=== PATIENT | male | born 1930 | race Caucasian/White ===

== ENCOUNTER 2017-01-11 20:53 | Inpatient (IN) | payer OTHER ==
[~2017-01-11] VITALS: Ht 177.8 cm; Wt 111.9 kg
[~2017-01-11 20:53] MED LIST: ASPIRIN81 M1 PO; CARDURA4 MG PO; DIOVAN320 MG PO; K-DUR20 MEQ PO; LASIX40 MG PO; Lopressor PO
[2017-01-11] MEDS ORDERED: AMLODIPINE BESYL5 MG PO (21:13)
[2017-01-11] MEDS ORDERED: HYDRALAZINE HCL50 MG PO (21:13)
[2017-01-11 21:52] LABS: EOSINOPHIL (%) 0.5 % (0-5); EOSINOPHIL COUNT 0.1 K/uL (0-0.3); HEMATOCRIT 47.4 % (38.0-50.0); IMMATURE GRANULOCYTE (%) 0.5 % (0.0-0.7); IMMATURE GRANULOCYTE COUNT 0.1 K/uL; INSTRUMENT ABS NEUTROPHIL CT 8.6 K/uL; LYMPHOCYTE COUNT 0.8 K/uL (1.0-2.8); MCH 30.3 PG (29.0-34.0); MCHC 33.1 G/DL (30.0-36.0); MCV 91.5 FL (86-99); MEAN PLAT.VOLUME 10.5 uM^3 (9.0-12.4); MONOCYTE (%) 5.2 % (3-12); MONOCYTE COUNT 0.5 K/uL (0-0.8); NEUTROPHIL (%) 85.2 % (45-76); NEUTROPHIL COUNT 8.6 K/uL (1.8-6.4); PLATELET COUNT 180 K/uL (156-360); RBC DIS.WIDTH-CV 14.1 % (11.8-14.6); RBC DIS.WIDTH-SD 47.7 % (39-53); RED BLOOD COUNT 5.18 M/uL (4.00-5.50)
[2017-01-11 22:04] LABS: PROTHROMBIN TIME 11.2 SEC (10.2-12.9)
[2017-01-11 22:05] LABS: AMYLASE 37 IU/L (1-118); CHLORIDE 107 mEq/L (99-109); POTASSIUM 3.9 mEq/L (3.7-5.4); SODIUM 140 mEq/L (136-147)
[2017-01-11 22:06] LABS: GLUCOSE 225 mg/dL (70-99); PTT 30.7 SEC (25-37)
[2017-01-11 22:08] LABS: ANION GAP 12 MEQ/L (2-14)
[2017-01-11 22:10] LABS: GFR ESTIMATE (CALCULATED) > 59 mL/min/; SERUM ETHYL ALCOHOL < 10 mg/dL
[2017-01-11 22:11] LABS: UREA NITROGEN (BUN) 25 mg/dL (9-23)
[2017-01-11 22:13] LABS: LIPASE 24 U/L (1.0-51.0)
[2017-01-11 22:19] LABS: TROP-I INTERPRETATION NEGATIVE; TROPONIN-I 0.09 ng/mL (0.0-0.30)
[2017-01-11 23:32] VITALS: BP 175/107
[2017-01-11 23:40] VITALS: BP 175/107
[2017-01-11 23:50] VITALS: BP 176/99
[2017-01-12] VITALS (21 sets, daily range): BP systolic 137–192; BP diastolic 68–140
[2017-01-12 01:07] LABS: METH RESISTANT S AUREUS PCR NEGATIVE (NEGATIVE)
[2017-01-12 01:44] LABS: PROBE CHECK PASS; SPECIMEN PROCESSING CONTROL PASS
[2017-01-12 05:44] LABS: EOSINOPHIL (%) 0.6 % (0-5); EOSINOPHIL COUNT 0.1 K/uL (0-0.3); HEMATOCRIT 47.2 % (38.0-50.0); IMMATURE GRANULOCYTE (%) 0.3 % (0.0-0.7); INSTRUMENT ABS NEUTROPHIL CT 6.7 K/uL; LYMPHOCYTE COUNT 1.2 K/uL (1.0-2.8); MCH 30.1 PG (29.0-34.0); MCHC 33.1 G/DL (30.0-36.0); MCV 91.1 FL (86-99); MONOCYTE (%) 8.3 % (3-12); MONOCYTE COUNT 0.7 K/uL (0-0.8); NEUTROPHIL (%) 76.9 % (45-76); NEUTROPHIL COUNT 6.7 K/uL (1.8-6.4); RBC DIS.WIDTH-CV 14.1 % (11.8-14.6); RBC DIS.WIDTH-SD 47.8 % (39-53); RED BLOOD COUNT 5.18 M/uL (4.00-5.50); WHITE BLOOD COUNT 8.7 K/uL (4.1-10.2)
[2017-01-12 06:14] LABS: MEAN PLAT.VOLUME 10.8 uM^3 (9.0-12.4); PLAT.SUFFICIENCY ADEQUATE; PLATELET COUNT 194 K/uL (156-360)
[2017-01-12 06:28] LABS: TROP-I INTERPRETATION POSITIVE; TROPONIN-I 7.25 ng/mL (0.0-0.30)
[2017-01-12 06:37] LABS: Estimated Average Glucose 120 mg/dL (70-123); HEMOGLOBIN A1c (GLYCOHEMOGLOB) 5.8 % HGB (Below 5.7)
[2017-01-12 06:56] LABS: ANION GAP 13 MEQ/L (2-14); CHLORIDE 103 MEQ/L (99-109); CREATINE KINASE 321 IU/L (1-294); GFR ESTIMATE (CALCULATED) > 59 mL/min/; HDL CHOLESTEROL 38 MG/DL (Desirable>=40); LDL CHOLESTEROL 85 mg/dL (Desirable<100); NON-HDL CHOLESTEROL 127 mg/dL (Desirable<160); POTASSIUM 4.1 MEQ/L (3.7-5.4); SAMPLE HEMOLYSIS CHECK 0; SAMPLE ICTERIC CHECK 0; SAMPLE LIPEMIA CHECK 0; SODIUM 137 MEQ/L (136-147); TOTAL CHOLESTEROL 165 mg/dL (Desirable<200); TOTAL CK 321 IU/L (1-294); TRIGLYCERIDES 209 MG/DL (Normal: <150); UREA NITROGEN (BUN) 23 mg/dL (9-23)
[2017-01-12 07:09] LABS: GLUCOSE 91 mg/dL (70-99)
[2017-01-12 11:08] LABS: CK-MB 19.9 ng/mL (0.0-4.9)
[2017-01-12 13:22] LABS: TROP-I INTERPRETATION POSITIVE; TROPONIN-I 6.47 ng/mL (0.0-0.30)
[2017-01-12 13:42] LABS: CREATINE KINASE 310 IU/L (1-294); TOTAL CK 310 IU/L (1-294)
[2017-01-12 14:06] LABS: CK-MB 18.3 ng/mL (0.0-4.9)
[2017-01-12 18:41] LABS: TROP-I INTERPRETATION POSITIVE; TROPONIN-I 5.62 ng/mL (0.0-0.30)
[2017-01-12 18:43] LABS: CREATINE KINASE 269 IU/L (1-294); TOTAL CK 269 IU/L (1-294)
[2017-01-12 18:47] LABS: CK-MB 15.9 ng/mL (0.0-4.9)
[2017-01-13 04:55] VITALS: BP 148/75
[2017-01-13 05:44] LABS: HEMATOCRIT 44.2 % (38.0-50.0); MCH 31.3 PG (29.0-34.0); MCHC 34.4 G/DL (30.0-36.0); MCV 91.1 FL (86-99); MEAN PLAT.VOLUME 10.7 uM^3 (9.0-12.4); PLATELET COUNT 191 K/uL (156-360); RBC DIS.WIDTH-CV 14.5 % (11.8-14.6); RED BLOOD COUNT 4.85 M/uL (4.00-5.50); WHITE BLOOD COUNT 7.5 K/uL (4.1-10.2)
[2017-01-13 06:10] LABS: ANION GAP 9 MEQ/L (2-14); CHLORIDE 106 MEQ/L (99-109); GFR ESTIMATE (CALCULATED) > 59 mL/min/; GLUCOSE 110 mg/dL (70-99); POTASSIUM 4.3 MEQ/L (3.7-5.4); SAMPLE HEMOLYSIS CHECK 0; SAMPLE ICTERIC CHECK 0; SAMPLE LIPEMIA CHECK 0; SODIUM 139 MEQ/L (136-147); UREA NITROGEN (BUN) 29 mg/dL (9-23)
[2017-01-13 07:40] VITALS: BP 178/80
[2017-01-13 09:42] VITALS: BP 153/67
[2017-01-13] MEDS ORDERED: NITROSTAT0.4 MG SL (09:56)
[2017-01-13] MEDS ORDERED: BRILINTA90 MG PO (09:56)
[2017-01-13] MEDS ORDERED: ATORVASTATIN CA80 MG PO (09:56)
[2017-01-13] MEDS ORDERED: TYLENOL REGULA325 MG PO (09:58)
== END 2017-01-13 12:07 | disposition home or self-care (01) | DRG 247 ==
LOC: EME → EDBD 20:53 → ENRESERV 21:38 → EME 22:10 → CATH 22:10 → 4WEST 23:29 → 4EAST 23:29 → 4WEST 01-12 13:49 → ENRESERV 01-12 13:54 → 4WEST 01-12 13:56 → ENRESERV 01-12 15:09 → 4EAST 01-12 15:26
PROVIDERS: Emergency Medicine; Internal Medicine; Internal Medicine Cardiovascular Disease
DX: I21.19 ST elevation (STEMI) myocardial infarction involving other coronary artery of inferior wall (principal); I25.10 Atherosclerotic heart disease of native coronary artery without angina pectoris; I50.32 Chronic diastolic (congestive) heart failure; I11.0 Hypertensive heart disease with heart failure; I45.9 Conduction disorder, unspecified; E78.5 Hyperlipidemia, unspecified; I35.0 Nonrheumatic aortic (valve) stenosis; K21.9 Gastro-esophageal reflux disease without esophagitis; Z87.891 Personal history of nicotine dependence; Z79.82 Long term (current) use of aspirin
CPT/HCPCS: 71010; 80048; 80061; 81003; 82150; 82550; 82550 91; 82553; 83036; 83690; 84484; 85025; 85027; 85347; 85610; 85730; 86900; 86901; 87641; 93005; 93306; 94799; 99281; 99285; C1725; C1769; C1874; C1887; G0480; J0461; J1644; J2250; J2405; J3010; J3246; J7030

== ENCOUNTER 2017-10-08 10:47 | Observation (INO) | payer OTHER ==
[~2017-10-08] VITALS: Ht 170.2 cm; Wt 108.0 kg
[~2017-10-08 10:47] MED LIST changes: +AMLODIPINE BESYL5 MG PO; -ASPIRIN81 M1 PO; +ATORVASTATIN CA80 MG PO; +BRILINTA90 MG PO; +HYDRALAZINE HCL50 MG PO; +LO-DOSE ASPIRIN81 M1 PO; +NITROSTAT0.4 MG SL; +TYLENOL REGULA325 MG PO
[2017-10-08 11:01] LABS: HEMATOCRIT 34.7 % (38.0-50.0); HEMOGLOBIN 11.7 G/DL (12.5-16.6); MCH 30.8 PG (29.0-34.0); MCHC 33.7 G/DL (30.0-36.0); MCV 91.3 FL (86-99); PLATELET COUNT 165 K/uL (156-360); RBC DIS.WIDTH-CV 14.2 % (11.8-14.6); RBC DIS.WIDTH-SD 47.9 % (39-53); WHITE BLOOD COUNT 6.1 K/uL (4.1-10.2)
[2017-10-08 11:11] LABS: CHLORIDE 107 mEq/L (99-109); POTASSIUM 3.8 mEq/L (3.7-5.4); SODIUM 136 mEq/L (136-147)
[2017-10-08 11:12] LABS: GLUCOSE 119 mg/dL (70-99)
[2017-10-08 11:16] LABS: CREATININE 0.8 mg/dL (0.6-1.3); GFR ESTIMATE (CALCULATED) > 59 mL/min/ (58.99-99999)
[2017-10-08 11:17] LABS: UREA NITROGEN (BUN) 30 mg/dL (9-23)
[2017-10-08 11:23] LABS: TROP-I INTERPRETATION NEGATIVE; TROPONIN-I < 0.01 ng/mL (0.0-0.30)
[2017-10-08 14:15] LABS: HDL CHOLESTEROL 21 MG/DL (Desirable>=40); LDL CHOLESTEROL 29 mg/dL (Desirable<100); NON-HDL CHOLESTEROL 43 mg/dL (Desirable<160); TOTAL CHOLESTEROL 64 mg/dL (Desirable<200); TRIGLYCERIDES 71 MG/DL (Normal: <150)
[2017-10-08] MEDS ORDERED: LIPITOR80 MG PO (14:16)
[2017-10-08] MEDS ORDERED: NORVASC2.5 MG PO (14:17)
[2017-10-08] MEDS ORDERED: DIOVAN HCT 31 TABLE1 PO (14:17)
[2017-10-08] MEDS ORDERED: TYLENOL EXTRA500 MG PO (14:19)
[2017-10-08 14:30] VITALS: BP 142/82
[2017-10-08 16:23] LABS: TROP-I INTERPRETATION NEGATIVE; TROPONIN-I 0.16 ng/mL (0.0-0.30)
[2017-10-08 20:13] VITALS: BP 162/74
[2017-10-08 22:27] LABS: TROP-I INTERPRETATION NEGATIVE; TROPONIN-I 0.29 ng/mL (0.0-0.30)
[2017-10-08 23:16] VITALS: BP 164/72
[2017-10-09 03:24] VITALS: BP 161/93
[2017-10-09 09:00] VITALS: BP 130/70
== END 2017-10-09 11:46 | disposition home or self-care (01) ==
LOC: EME 10:47 → EDOF 13:28 → ENRESERV 13:35 → EDOF 13:44 → 4SOUTH 14:29
PROVIDERS: Emergency Medicine; Hospitalist
DX: R07.9 Chest pain, unspecified (principal); I35.0 Nonrheumatic aortic (valve) stenosis; I11.0 Hypertensive heart disease with heart failure; I50.9 Heart failure, unspecified; E78.5 Hyperlipidemia, unspecified; I25.10 Atherosclerotic heart disease of native coronary artery without angina pectoris; I25.2 Old myocardial infarction; Z95.5 Presence of coronary angioplasty implant and graft; I48.92 Unspecified atrial flutter; I49.5 Sick sinus syndrome; I44.1 Atrioventricular block, second degree; E66.9 Obesity, unspecified; Z68.37 Body mass index [BMI] 37.0-37.9, adult; K21.9 Gastro-esophageal reflux disease without esophagitis; E11.9 Type 2 diabetes mellitus without complications; Z87.891 Personal history of nicotine dependence; Z79.82 Long term (current) use of aspirin; M19.90 Unspecified osteoarthritis, unspecified site; L55.9 Sunburn, unspecified
CPT/HCPCS: 71045; 80048; 80061; 84484; 85027; 93005; 93306; 99281; 99285; G0378; J1650; J7030